=== PATIENT | female | born 1995 | race Caucasian/White ===

== ENCOUNTER 2017-10-06 17:44 | Emergency (ER) | payer MEDICAID ==
[~2017-10-06] VITALS: Ht 170.2 cm; Wt 60.0 kg
[2017-10-06] MEDS ORDERED: LEVO1.5T12 PO (18:10)
[2017-10-06 18:36] VITALS: BP 110/72
== END 2017-10-06 18:38 | disposition home or self-care (01) ==
LOC: ER 17:45
DX: Z30.012 Encounter for prescription of emergency contraception (principal); Z91.040 Latex allergy status
CPT/HCPCS: 99282

== ENCOUNTER 2017-10-28 17:23 | Emergency (ER) | payer MEDICAID ==
[~2017-10-28] VITALS: Ht 170.2 cm; Wt 81.3 kg
[~2017-10-28 17:23] MED LIST: METR70GE5 VG; VIT D
[2017-10-28 17:28] VITALS: BP 121/68
[2017-10-28] MEDS ORDERED: METR70GE5 VG (18:22)
== END 2017-10-28 18:31 | disposition home or self-care (01) ==
LOC: ER 17:24
DX: N76.0 Acute vaginitis (principal); Z91.040 Latex allergy status; Z79.899 Other long term (current) drug therapy
CPT/HCPCS: 99283

== ENCOUNTER 2017-11-13 18:22 | Emergency (ER) | payer MEDICAID ==
[~2017-11-13] VITALS: Ht 170.2 cm; Wt 82.5 kg
[2017-11-13 18:24] VITALS: BP 120/60
[2017-11-13 18:50] LABS: BASOPHILS % (AUTO) 0.4 % (0-1); EOSINOPHILS # (AUTO) 0.2 X10'3 (0-0.9); EOSINOPHILS % (AUTO) 2.5 % (0-6); HEMATOCRIT 37.2 % (35.0-45.0); HEMOGLOBIN 12.9 g/dl (12.0-16.0); LYMPHOCYTES # (AUTO) 3.3 X10'3 (1.1-4.8); LYMPHOCYTES % (AUTO) 33.5 % (21-51); MEAN CORPUSCULAR HEMOGLOBIN 30.5 PG (27.0-31.0); MEAN CORPUSCULAR HGB CONC 34.6 % (33.0-36.5); MEAN CORPUSCULAR VOLUME 88.2 FL (78-98); MEAN PLATELET VOLUME 7.4 FL (7.4-10.4); MONOCYTES # (AUTO) 0.8 X10'3 (0-0.9); MONOCYTES % (AUTO) 8.4 % (2-12); NEUTROPHILS # (AUTO) 5.4 X10'3 (1.8-7.7); NEUTROPHILS % (AUTO) 55.2 % (42-75); PLATELET COUNT 325 X10'3 (140-440); RED BLOOD COUNT 4.21 X10'6 (4.20-5.60); RED CELL DISTRIBUTION WIDTH 12.2 % (11.5-14.5); WHITE BLOOD COUNT 9.9 X10'3 (4.5-11.0)
[2017-11-13 19:01] LABS: PROTHROMBIN TIME 10.3 SECONDS (9.0-12.0)
[2017-11-13 19:05] LABS: ALANINE AMINOTRANSFERASE 19 U/L (12-78); ALBUMIN/GLOBULIN RATIO 1.1 (1.1-1.5); ALKALINE PHOSPHATASE 87 IU/L (46-116); ANION GAP 4 (8-16); ASPARTATE AMINO TRANSFERASE 13 U/L (10-37); BILIRUBIN,TOTAL 0.3 MG/DL (0.1-1.0); BLOOD UREA NITROGEN 11 MG/DL (7-18); BUN/CREATININE RATIO 11.5 (6.6-38.0); CHLORIDE 104 MMOL/L (99-107); CREATININE 0.96 MG/DL (0.40-0.90); GLUCOSE 84 MG/DL (70-104); POTASSIUM 3.5 MMOL/L (3.5-5.1); SODIUM 139 MMOL/L (135-145); TOTAL CARBON DIOXIDE 30.6 MMOL/L (24-32); TOTAL PROTEIN 7.6 G/DL (6.4-8.2); eGFR 72 ML/MIN
[2017-11-13 19:06] LABS: HCG SERUM QL NEGATIVE
[2017-11-13 19:09] LABS: CLARITY,URINE CLEAR (Clear); COLOR,URINE YELLOW (Yellow); GLUCOSE, URINE NEGATIVE (Neg); KETONES,URINE NEGATIVE (Neg); LEUKOCYTE ESTERASE ,URINE NEGATIVE (Neg); NITRITES, URINE NEGATIVE (Neg); OCCULT BLOOD,URINE NEGATIVE (Neg); PROTEIN,URINE NEGATIVE (Neg); UROBILINOGEN,URINE 0.2 E.U/dL (0.2-1.0)
[2017-11-13 19:10] LABS: UA COLLECTION TYPE CLN CATCH MIDSTREAM
== END 2017-11-14 | disposition home or self-care (01) ==
LOC: ER 18:22
DX: R10.2 Pelvic and perineal pain (principal); R11.0 Nausea; Z90.410 Acquired total absence of pancreas; Z79.899 Other long term (current) drug therapy
CPT/HCPCS: 36415; 80053; 81003; 84703; 85025; 85610; 99284

== ENCOUNTER 2018-04-03 02:32 | Outpatient (CLI) | payer MEDICAID | END 2018-04-03 23:59 | disposition home or self-care (01) | LOC: DIABETIC 02:32 | PROVIDERS: ATTEND Family Medicine | DX: R63.4 Abnormal weight loss (principal); E06.3 Autoimmune thyroiditis; E66.9 Obesity, unspecified; E55.9 Vitamin D deficiency, unspecified; Z91.040 Latex allergy status | CPT/HCPCS: 97802 ==